=== PATIENT | female | born 1960 | race Caucasian/White ===

== ENCOUNTER → 2017-06-13 | Outpatient (CLI) | payer OTHER, MEDICAID | LOC: CIMAGING 15:47 | PROVIDERS: ATTEND Nurse Practitioner | DX: N95.0 Postmenopausal bleeding (principal) | CPT/HCPCS: 76856-PO ==

== ENCOUNTER → 2017-07-25 | Outpatient (CLI) | payer OTHER, MEDICAID | LOC: FIMAGING 10:09 | PROVIDERS: ATTEND Orthopaedic Surgery Hand Surgery | DX: M65.88 Other synovitis and tenosynovitis, other site (principal) ==

== ENCOUNTER 2017-07-26 15:49 | Emergency (ER) | payer OTHER, MEDICAID ==
[2017-07-26 16:02] VITALS: BP 130/74; PULSE 91; RESP 20; TEMP 98.6; O2SAT 92
--- NOTE | 2017-07-26 16:15 | EDPHY ---
H & P Stated Complaint: pt c/o sore throat since , fever Time Seen by Provider: 07/26/17 16:08 HPI/ROS: CHIEF COMPLAINT: Fever, sore throat HISTORY OF PRESENT ILLNESS: The patient presents the ED with a 2 day history of fever and sore throat. The patient reportedly was seen by a nurse at her house who was concerned about a possible peritonsillar abscess and referred the patient to the ED. She reportedly had a negative rapid strep test in the field. The patient denies any significant cough. She does report painful swallowing. She denies any vomiting, abdominal pain or additional acute complaints. REVIEW OF SYSTEMS: A comprehensive 10 point review of systems is otherwise negative aside from elements mentioned in the history of present illness. Source: Patient Exam Limitations: No limitations - Personal History Current Tetanus Diphtheria and Acellular Pertussis (TDAP): Unsure Tetanus Vaccine Date: 07/2012 - Medical/Surgical History Hx Asthma: No Hx Chronic Respiratory Disease: No Hx Diabetes: No Hx Cardiac Disease: No Hx Renal Disease: No Hx Cirrhosis: No Hx Alcoholism: No Hx HIV/AIDS: No Hx Splenectomy or Spleen Trauma: No Other PMH: seizures, HYPOTHYROIDISM, HTN. CHRONIC BACK PAIN. ORTHO SURGERIES. C-SECION X 2. LAP ROSANA. BILATERAL HIP REPLACEMENTS - Social History Smoking Status: Former smoker - Physical Exam Exam: General Appearance: Alert, no distress Eyes: Pupils equal and round no pallor or injection ENT, Mouth: Pharyngeal erythema, tonsillar exudate, no peritonsillar mass or swelling appreciated, no trismus Respiratory: There are no retractions, lungs are clear to auscultation Cardiovascular: Regular rate and rhythm Gastrointestinal: Abdomen is soft and nontender, no masses, bowel sounds normal Neurological: A&O, normal motor function, normal sensory exam, normal cranial nerves Skin: Warm and dry, no rashes Musculoskeletal: Neck is supple nontender Extremities: symmetrical, full range of motion Constitutional: Initial Vital Signs Temperature (C) 37 C 07/26/17 15:57 Heart Rate 91 07/26/17 15:57 Respiratory Rate 20 07/26/17 15:57 Blood Pressure 130/74 H 07/26/17 15:57 O2 Sat (%) 92 07/26/17 15:57 O2 Delivery Mode Room Air Allergies/Adverse Reactions: cortisone [Cortisone] Allergy (Intermediate, Verified 02/09/16 08:06) Hives oxycodone [Oxycodone] Allergy (Intermediate, Verified 02/09/16 08:06) GASTROPORESIS? pregabalin [From Lyrica] Allergy (Intermediate, Verified 02/09/16 08:06) Hives Sulfa (Sulfonamide Antibiotics) Allergy (Intermediate, Verified 02/09/16 08:06) Rash meclizine Allergy (Verified 07/26/17 15:54) Home Medications: Medication Instructions Recorded Atenolol 25 mg 05/05/10 LEVOTHYROXINE SODIUM 08/21/10 Losartan Potassium 05/22/15 Gabitril 07/26/17 Medical Decision Making ED Course/Re-evaluation: Patient presents to the ED with strep pharyngitis without clinical evidence of peritonsillar abscess or retropharyngeal abscess. The patient's strep test is positive. The patient will be given a single dose of Decadron. She is given a prescription for penicillin VK. She is discharged home with customary aftercare instructions and return precautions. Differential Diagnosis: Differential diagnosis considered include strep pharyngitis, peritonsillar abscess, retropharyngeal abscess - Data Points Laboratory Results: 07/26/17 07/26/17 16:00 16:00 Nasal Influenza A PCR Pending Cancelled Nasal Influenza B PCR Pending Cancelled Group A Strep Screen POSITIVE H (NEGATIVE) Departure - Departure Disposition: Home, Routine, Self-Care Clinical Impression: Acute pharyngitis Condition: Good Instructions: Pharyngitis (ED) Additional Instructions: 1. Your strep test is positive. 2. Take antibiotics as directed for next 7 days. 3. Take Ibuprofen or Motrin 600 mg by mouth three times a day. 4. Follow up with the Ear Nose Throat physician you have been referred to for any unimproved symptoms. 5. Return to the ED for markedly worsening symptoms or other concerns. Referrals: Gloria Mensah, MOBILITY ARCHITECT MANAGER [Primary Care Provider] - As per Instructions
[2017-07-26] MEDS ORDERED: PENICILLIN VK 500 MG TAB PO ONE (16:25)
[2017-07-26] MEDS ORDERED: DEXAMETHASONE 4 MG TAB PO ONE (16:25)
== END 2017-07-26 17:00 | disposition home or self-care (01) ==
DX: J02.9 Acute pharyngitis, unspecified (principal); I10 Essential (primary) hypertension; Z87.891 Personal history of nicotine dependence

== ENCOUNTER → 2017-10-26 | Outpatient (CLI) | payer MEDICAID | LOC: SBRMNEURO 20:00 | PROVIDERS: ATTEND Physician Assistant Medical | DX: G47.33 Obstructive sleep apnea (adult) (pediatric) (principal); G47.36 Sleep related hypoventilation in conditions classified elsewhere; G47.61 Periodic limb movement disorder ==